=== PATIENT | male | born 1965 | race Caucasian/White ===

== ENCOUNTER 2019-07-01 20:35 | Emergency (ER) | payer OTHER ==
[2019-07-01] MEDS ORDERED: Ibuprofen 800 MG Tab PO ONE (20:36)
[2019-07-01] MEDS ORDERED: Lidocaine 1% PF 2 ML SDV INFILT ONE (20:36)
--- NOTE | 2019-07-01 20:47 | EDM.PDOC ---
ED HPI GENERAL MEDICAL PROBLEM - General Chief Complaint: Laceration Stated Complaint: FINGER LACERATION Time Seen by Provider: 07/01/19 20:46 Source of Information: Reports: Patient History Limitations: Reports: No Limitations - History of Present Illness INITIAL COMMENTS - FREE TEXT/NARRATIVE: Laceration to the middle finger,Left - Related Data Allergies Allergy/AdvReac Type Severity Reaction Status Date / Time No Known Allergies Allergy Verified 07/01/19 20:46 Home Meds: Home Meds Multivitamins [Tab-A-Darci] 1 tab PO DAILY 07/01/19 [History] ED ROS GENERAL - Review of Systems Review Of Systems: Comprehensive ROS is negative, except as noted in HPI. ED EXAM, SKIN/RASH Exam: See Below Text/Narrative:: Deformity left middle finger. 2 cm pulp of finger Exam Limited By: No Limitations General Appearance: Alert, WD/WN, No Apparent Distress ED SKIN PROCEDURES - Laceration/Wound Repair Left Digit - 3rd (Middle) Appearance: Subcutaneous, Linear, Mildly Contaminated Distal NVT: Neuro & Vascular Intact Anesthetic Type: Local Local Anesthesia - Lidocaine (Xylocaine): 1% Plain Local Anesthetic Volume: 2cc Skin Prep: Saline Exploration/Debridement/Repair: In a Bloodless Field Closed with: Sutures Lac/Wound length In cm: 2 Suture Size: 4-0 Suture Type: Silk Drain Placement: No Sterile Dressing Applied: Nurse Tetanus Status Addressed: Yes Complications: No - I&D Site: Finger Skin Prep: Chlorhexidine (Hibiciens) Drainage: Bloody Progress/Comments: Usee portable cautery to relive subungual hematoma. Course - Vital Signs Text/Narrative:: Xray showed distal phalanx fracture. Last Recorded V/S: Last Vital Signs Temp 96.8 F L 07/01/19 20:50 Pulse 62 07/01/19 20:50 Resp 15 07/01/19 20:50 BP 142/77 H 07/01/19 20:50 Pulse Ox 99 07/01/19 20:50 - Orders/Labs/Meds Orders: Active Orders 24 hr Category Date Time Status Fingers Third Digit Lt F2 [CR] Stat Exams 07/01/19 20:47 Taken Fingers Third Digit Rt F7 [CR] Stat Exams 07/01/19 20:45 Stop Req Departure - Departure Time of Disposition: 21:13 Disposition: Home, Self-Care 01 Clinical Impression: Finger injury - Discharge Information Forms: ED Department Discharge Sepsis Event Note - Focused Exam Vital Signs: Vital Signs Temp Pulse Resp BP Pulse Ox 07/01/19 20:50 96.8 F L 62 15 142/77 H 99 Date Exam was Performed: 07/01/19 Time Exam was Performed: 21:11 - Problem List & Annotations (1) Finger injury SNOMED Code(s): 61740895 Code(s): S69.90XA - UNSP INJURY OF UNSP WRIST, HAND AND FINGER(S), INIT ENCNTR Status: Acute Current Visit: Yes Qualifiers: Encounter type: initial encounter (2) Distal phalanx or phalanges, closed fracture SNOMED Code(s): 23320700 Code(s): S62.639A - DISP FX OF DISTAL PHALANX OF UNSP FINGER, INIT FOR CLOS FX Status: Acute Current Visit: Yes Qualifiers: Encounter type: initial encounter Finger: middle finger Fracture alignment: nondisplaced Laterality: left Qualified Code(s): S62.663A - Nondisplaced fracture of distal phalanx of left middle finger, initial encounter for closed fracture (3) Laceration SNOMED Code(s): 133070406 Code(s): [id number] - Status: Acute Current Visit: Yes (4) Subungual hematoma of digit of hand SNOMED Code(s): 924300100 Code(s): S60.10XA - CONTUSION OF UNSP FINGER WITH DAMAGE TO NAIL, INIT ENCNTR Status: Acute Current Visit: Yes Qualifiers: Encounter type: initial encounter Qualified Code(s): S60.10XA - Contusion of unspecified finger with damage to nail, initial encounter - Problem List Review Problem List Initiated/Reviewed/Updated: Yes - My Orders Last 24 Hours: My Active Orders 07/01/19 20:45 Fingers Third Digit Rt F7 [CR] Stat 07/01/19 20:47 Fingers Third Digit Lt F2 [CR] Stat - Assessment/Plan Last 24 Hours: My Active Orders 07/01/19 20:45 Fingers Third Digit Rt F7 [CR] Stat 07/01/19 20:47 Fingers Third Digit Lt F2 [CR] Stat Plan: Remove sutures in 1 week. Chris tape middle finger
[2019-07-01] MEDS ORDERED: Diphtheria,Pertussis(Acell),Tetanus Vaccine 0.5 ML SDV IM ONE (21:23)
== END 2019-07-01 21:40 | disposition home or self-care (01) ==
LOC: FB.ED 20:35
DX: S61.213A Laceration without foreign body of left middle finger without damage to nail, initial encounter (principal); Z23 Encounter for immunization; W26.9XXA Contact with unspecified sharp object(s), initial encounter
CPT/HCPCS: 12001; 73140; 90471; 90715; 99283; A9270; J2001